=== PATIENT | male | born 1970 | race Caucasian/White ===

== ENCOUNTER 2017-10-18 08:21 | Emergency (ER) | payer OTHER ==
[~2017-10-18] VITALS: Ht 182.9 cm; Wt 111.0 kg
[~2017-10-18 08:21] MED LIST: NO HOME MEDS
[2017-10-18 08:42] VITALS: BP 146/107
[2017-10-18] MEDS ORDERED: IBUP-1984 PO (08:54)
[2017-10-18] MEDS ORDERED: CLIN-80 PO (08:54)
== END 2017-10-18 09:17 | disposition home or self-care (01) ==
LOC: ER 08:21
DX: K04.7 Periapical abscess without sinus (principal); F17.200 Nicotine dependence, unspecified, uncomplicated; Z90.49 Acquired absence of other specified parts of digestive tract; Z98.890 Other specified postprocedural states
CPT/HCPCS: 99283

== ENCOUNTER 2018-10-27 23:29 | Emergency (ER) | payer OTHER ==
[~2018-10-27 23:29] MED LIST changes: +CLIN-96 PO
--- NOTE | 2018-10-28 01:30 | NUR ---
CALL PLACED TO NUMBER ON FILE. SPOKE WITH MAXIM. HE REPORTS THAT HE WILL BE BACK IN THE AM. DR. SIMMONSFS INFORMED.
== END 2018-10-28 01:22 | disposition left against medical advice (07) ==
LOC: ER 23:29
DX: L02.91 Cutaneous abscess, unspecified (principal); Z53.21 Procedure and treatment not carried out due to patient leaving prior to being seen by health care provider

== ENCOUNTER 2024-02-11 10:02 | Emergency (ER) | payer OTHER ==
[~2024-02-11] VITALS: Ht 180.3 cm; Wt 95.5 kg
[~2024-02-11 10:02] MED LIST changes: -CLIN-96 PO; +CLIN-97 PO
[2024-02-11] MEDS ORDERED: AMLO5TAB5 PO (10:25)
[2024-02-11] MEDS: diphenhydrAMINE 25mg capsule PO ONE (10:34)
[2024-02-11 10:35] VITALS: BP 148/88; PULSE 118; RESP 18; TEMP 98.7; O2SAT 98
[2024-02-11] MEDS: dexamethasone 4mg tablet PO ONE (10:35)
[2024-02-11] MEDS: amLODIPine 5mg tablet PO ONE (10:35)
== END 2024-02-11 10:37 | disposition home or self-care (01) ==
LOC: ER 10:02
DX: J06.9 Acute upper respiratory infection, unspecified (principal); I10 Essential (primary) hypertension; R09.82 Postnasal drip; F17.200 Nicotine dependence, unspecified, uncomplicated; Z79.899 Other long term (current) drug therapy; Z72.89 Other problems related to lifestyle; Z90.49 Acquired absence of other specified parts of digestive tract; Z98.890 Other specified postprocedural states
CPT/HCPCS: 99284; Q0163